=== PATIENT | female | born 1970 | race Caucasian/White ===

== ENCOUNTER 2020-11-02 13:56 | Emergency (ER) | payer MEDICAID ==
[~2020-11-02] VITALS: Ht 165.1 cm; Wt 68.2 kg
[2020-11-02 14:08] VITALS: BP 126/90; Ht 165.1 cm; Wt 68.2 kg
[2020-11-02] MEDS ORDERED: ATIVAN1 MG PO (14:10)
[2020-11-02] MEDS ORDERED: PROZAC20 MG PO (14:10)
[2020-11-02] MEDS ORDERED: NATROL 5-HTP50 MG PO (14:10)
[2020-11-02] MEDS ORDERED: CYCLOBENZAPRINE10 MG PO (14:12)
[2020-11-02 15:15] LABS: UDS - AMPHET POSITIVE QUAL (NEGATIVE); UDS - BARB NEGATIVE QUAL (NEGATIVE); UDS - BENZO NEGATIVE QUAL (NEGATIVE); UDS - COCAINE NEGATIVE QUAL (NEGATIVE); UDS - OPIATE NEGATIVE QUAL (NEGATIVE); UDS - PCP NEGATIVE QUAL (NEGATIVE); UDS - THC NEGATIVE QUAL (NEGATIVE)
[2020-11-02 15:20] LABS: BASOPHILS 0.3 % (0-2); EOSINOPHILS 1.8 % (0-7); HEMATOCRIT 41.4 % (36.0-48.0); HEMOGLOBIN 13.6 g/dL (12-16); IMMATURE GRANULOCYTES 0.2 % (0-5); LYMPHOCYTE ABS# 2.93 10x3/uL (1.18-3.74); LYMPHOCYTES 28.1 % (15-50); MCH 29.7 pg (26.0-34.0); MCHC 32.9 g/dL (31.0-37.0); MCV 90.4 fL (80.0-100.0); MEAN PLATELET VOLUME 10.5 fL (7.4-10.4); MONOCYTES 8.1 % (2-11); NEUTROPHIL ABS# 6.42 10x3/uL (1.56-6.13); NEUTROPHILS 61.5 % (40-80); PLATELET COUNT 296 10x3/uL (130-400); RBC 4.58 10x6/uL (4.00-5.40); RDW 13.5 % (11.5-14.5); WBC 10.4 10x3/uL (4.8-10.8)
[2020-11-02 15:23] LABS: BILIRUBIN NEGATIVE (NEGATIVE); KETONE NEGATIVE (NEGATIVE); NITRITE NEGATIVE (NEGATIVE); UROBILINOGEN NORMAL mg/dL (< 2)
[2020-11-02 15:27] LABS: ANION GAP 9.8 mmol/L (8-16); CALCIUM 9.6 mg/dL (8.5-10.1); CARBON DIOXIDE 28.2 mmol/L (21.0-32.0); CREATININE - SERUM 0.9 mg/dL (0.6-1.3)
[2020-11-02 15:33] LABS: ALBUMIN 3.5 g/dL (3.4-5.0); BILIRUBIN - TOTAL 0.22 mg/dL (0.2-1.3); MAGNESIUM - SERUM 1.8 mg/dL (1.8-2.4); PROTEIN - SERUM 6.9 g/dL (6.4-8.2)
--- NOTE | 2020-11-02 16:31 | NUR ---
DR. GARCIA NOTIFIED AND SITTER ORDERED. SITTER IN LINE OF SIGHT. NOTIFIED CHARGE NURSE AND ATTENDING IN REGARDS TO ASSESSMENT FINDINGS. RESOURCES GIVEN TO PT AND SAFETY PLAN INTIATED. PT HAS AN EXTENSIVE HISTORY OF BIPOLAR DISORDER AND SCHIZOEFFECTIVE DISORDER. PT HAS THOUGHTS OF SI.
[2020-11-02 17:37] LABS: SARS-CoV-2 ANTIGEN NEGATIVE- SARS-COV-2 (NEGATIVE)
== END 2020-11-02 21:37 ==
LOC: D.ER 13:56
PROVIDERS: Emergency Medicine
DX: R45.851 Suicidal ideations (principal); R44.3 Hallucinations, unspecified; F15.10 Other stimulant abuse, uncomplicated; J45.909 Unspecified asthma, uncomplicated; Z72.0 Tobacco use